=== PATIENT | male | born 1950 | race Caucasian/White ===

== ENCOUNTER 2020-05-29 22:12 | Inpatient (IN) | payer MEDICARE, OTHER ==
[~2020-05-29] VITALS: Ht 185.4 cm; Wt 111.4 kg
--- NOTE | 2020-05-29 22:41 | NUR ---
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
[2020-05-29] MEDS ORDERED: SODIUM CHLORIDE FLUSH 10ML SYR IVF ONE (23:00)
[2020-05-29 23:42] LABS: MEAN CORPUSCULAR HEMOGLOBIN 30.8 pg (27.5-34.5); MEAN CORPUSCULAR HGB CONC 33.4 g/dL (33.2-36.2); MEAN PLATELET VOLUME 7.5 fL (7.4-10.4); PLATELET COUNT 453 x10^3/uL (130-400); RED BLOOD COUNT 1.54 x10^6/uL (4.38-5.82)
[2020-05-29 23:48] LABS: ALANINE AMINOTRANSFERASE 17 U/L (12-78); ALBUMIN 2.4 g/dL (3.4-5.0); ANION GAP 12 mmol/L (5-15); CALCIUM 9.4 mg/dL (8.5-10.1); CHLORIDE 100 mmol/L (98-107)
[2020-05-29] MEDS ORDERED: PANTOPRAZOLE 80 MG in SODIUM CHLORIDE 0.9% 100 ML IV SCH (23:49)
[2020-05-29 23:54] LABS: ALKALINE PHOSPHATASE 78 U/L (45-117); BILIRUBIN,TOTAL 0.2 mg/dL (0.2-1.0); CREATININE 2.96 mg/dL (0.7-1.3); TOTAL PROTEIN 6.2 g/dL (6.4-8.2); TROPONIN I < 0.015 ng/mL (0.000-0.045)
[2020-05-29] MEDS ORDERED: MORPHINE SULFATE 4 MG/ML, 1ML ONE (23:58)
[2020-05-29 23:59] LABS: T4 (THYROXINE) 6.6 mcg/dL (4.5-12.1)
[2020-05-30] VITALS (18 sets, daily range): BP systolic 93–121; BP diastolic 47–57
[2020-05-30] MEDS ORDERED: SODIUM CHLORIDE 0.9% 1,000ML IVBOLUS ONE
[2020-05-30] MEDS ORDERED: DEXTROSE 50%, 50ML SYRINGE IVPush ONE
[2020-05-30] MEDS ORDERED: SODIUM CHLORIDE FLUSH 10ML SYR IVF ONE ×2
[2020-05-30] MEDS ORDERED: PANTOPRAZOLE 40 MG IV IVPush ONE
[2020-05-30] MEDS ORDERED: CALCIUM CHLORIDE 10%, 10ML SYR IVPush ONE
[2020-05-30] MEDS ORDERED: MORPHINE SULFATE 4 MG/ML, 1ML IVPush ONE
[2020-05-30] MEDS ORDERED: SODIUM BICARB 8.4%, 50ML SYRINGE IVPush ONE
[2020-05-30] MEDS ORDERED: INSULIN REGULAR 100 UNITS/ML, 3ML VIAL IVPush ONE
--- NOTE | 2020-05-30 00:02 | NUR ---
LATE ENTRY SUMMARY NOTE DUE TO PT CARE: THIS PT LIVES AT HOME WITH HIS WHERE HE NORMALLY AMBULATES WITHOUT ASSISTIVE DEVICES. PT WAS DIAGNOSED WITH CELLULITUS ON HIS RIGHT CALF, AND WAS GIVEN ABX BY HIS PCP. HE'D BEEN COMPLAINING OF GI SYMPOTOMS ASSOCIATED WITH HIS ABX INCLUDING N/V, LOOSE STOOLS AND ABD PAIN SO HIS PCP TOLD HIM HE COULD STOP AND HE STATES HIS GI SYMPTOMS RESOLVED. PT STATES HE ALSO NOTED DARK TARRY STOOLS FOR 3 WEEKS AND INCREASED WEAKNESS FOR THE PAST 3-5 DAYS. PT HAS FALLEN TWICE, MOST RECENTLY PRIOR TO ARRIVAL IN THE ER. BOTH TIMES PT DENIED FEELING DIZZY PRIOR. HIS FIRST FALL WAS APPROX 2 WEEKS AGO DURING WHICH HE HURT HIS LEFT ANKLE AND RIGHT 3RD TOE. HE DENIES HITTING HIS HEAD EITHER TIME. PT'S LABS REVEALED ACUTE KIDNEY FAILURE, NO HX OF KIDNEY PROBLEMS, SO URITHRAL CATHETER INSTERTED FOR STRICT I&OS. 300MLS OF URINE UPON INSERTION; INSERTED PER POLICY. PT WAS PLACED ON CARDIAC, BP AND O2 MONITORS IMMEDIATELY, CALL LIGHT IN REACH AND VISITOR AT BEDSIDE FOR THE DURATION OF TIME IN ROOM.
[2020-05-30] MEDS ORDERED: CALCIUM CHLORIDE 10%, 10ML SYR ONE (00:08)
[2020-05-30] MEDS ORDERED: PANTOPRAZOLE 40 MG IV ONE (00:08)
[2020-05-30] MEDS ORDERED: SODIUM BICARB 8.4%, 50ML SYRINGE ONE (00:08)
[2020-05-30] MEDS ORDERED: INSULIN SINGLE DOSE, ER ONE (00:09)
[2020-05-30] MEDS ORDERED: DEXTROSE 50%, 50ML SYRINGE ONE (00:09)
[2020-05-30 00:13] LABS: MD YES
[2020-05-30 00:15] LABS: ANISOCYTOSIS 1+; BAND#(MANUAL) 0.38 x10^3/uL; BANDS%(MANUAL) 2 % (0-7); HYPOCHROMIA 1+; LYMPH#(MANUAL) 1.14 x10^3/uL (1-3.4); LYMPHS% (MANUAL) 6 % (22-44); MONOS#(MANUAL) 0.19 x10^3/uL (0.3-2.7); MONOS% (MANUAL) 1 % (2-9); SEG#(MANUAL) 17.29 x10^3/uL (1.8-6.8); SEGS% (MANUAL) 91 % (42-75)
[2020-05-30 00:16] LABS: <PLATELET ESTIMATE> INCREASED; <PLT MORPHOLOGY> NORMAL PLT MORPH; POLYCHROMASIA 2+
[2020-05-30] MEDS ORDERED: PLEASE ENTER ALLERGIES MC SCH (00:30)
[2020-05-30] MEDS ORDERED: SODIUM CHLORIDE 0.9% 1,000 ML IV ONE (00:36)
[2020-05-30 00:42] LABS: INTERNATIONAL NORMALIZED RATIO 1.01 (0.93-1.1); PROTHROMBIN TIME 10.4 Seconds (9.6-11.5)
[2020-05-30] MEDS ORDERED: LIDOCAINE-MPF 1%, 5ML ONE (00:59)
[2020-05-30] MEDS ORDERED: LIDOCAINE-MPF 1%, 5ML INFIL ONE (01:00)
[2020-05-30] MEDS ORDERED: SIMV20TA19 PO (01:12)
[2020-05-30] MEDS ORDERED: DOCUSATE 100 MG CAPSULE PO PRN (01:30)
[2020-05-30] MEDS ORDERED: ONDANSETRON 2MG/ML, 2ML IVPush PRN (01:30)
[2020-05-30] MEDS ORDERED: BISACODYL 10 MG SUPP PR PRN (01:30)
[2020-05-30] MEDS ORDERED: morphine SULFATE 10 MG/ML, 1ML IVPush PRN (01:30)
[2020-05-30] MEDS ORDERED: ONDANSETRON ODT 4 MG PO PRN (01:30)
[2020-05-30] MEDS ORDERED: POLYETHYLENE GLYCOL 17 GM PACKET PO PRN (01:30)
[2020-05-30] MEDS ORDERED: hydrALAzine 20 MG/ML, 1ML IVPush PRN (01:30)
[2020-05-30] MEDS ORDERED: PROMETHAZINE 25 MG/ML, 1ML IM PRN (01:30)
[2020-05-30] MEDS ORDERED: LISI-170 PO (01:47)
[2020-05-30] MEDS ORDERED: SITA1TAB5 PO (01:47)
--- NOTE | 2020-05-30 01:49 | NUR ---
LATE ENTRY TO CORRECT CHARTING ON WRONG PT: ATTEMPTED TO CALL REPORT AT THIS TIME.
[2020-05-30 01:52] LABS: MICROSCOPIC AUTO
--- NOTE | 2020-05-30 02:15 | NUR ---
REPORT GIVEN TO WILI HARRISU CORA.
[2020-05-30] MEDS: SODIUM CHLORIDE 0.9% 1,000 ML IV SCH ×2 (02:56→14:56)
[2020-05-30] MEDS: OXYcodone IR 5MG TABLET PO PRN ×4 (04:06→20:36)
[2020-05-30 07:07] LABS: ALANINE AMINOTRANSFERASE 15 U/L (12-78); ANION GAP 5 mmol/L (5-15); CALCIUM 8.4 mg/dL (8.5-10.1); CHLORIDE 108 mmol/L (98-107); CREATININE 2.37 mg/dL (0.7-1.3)
[2020-05-30 07:11] LABS: ALKALINE PHOSPHATASE 66 U/L (45-117); BILIRUBIN,TOTAL 0.8 mg/dL (0.2-1.0); CHOL/HDL RATIO 2.7; CHOLESTEROL, TOTAL 78 mg/dL (140-239); HDL CHOL % 37 % (26-37); HDL CHOLESTEROL (DIRECT) 29 mg/dL (40-60); LDL CHOLESTEROL,CALCULATED 10 mg/dL (54-169); LDL/HDL RATIO 0.3 (0.5-3.0); TOTAL PROTEIN 5.1 g/dL (6.4-8.2); TRIGLYCERIDES 197 mg/dL (50-200); VLDL CHOLESTEROL 39 mg/dL (0-25)
[2020-05-30] MEDS: INSULIN LISPRO 100 UNITS/ML, PEN SQ-INSULIN SCH ×4 (08:11→21:00)
[2020-05-30] MEDS: PANTOPRAZOLE 80 MG in SODIUM CHLORIDE 0.9% 100 ML IV SCH (13:18)
[2020-05-30] MEDS: CEFAZOLIN PMX 1GM/50ML 50 ML IV SCH ×2 (13:18→20:35)
[2020-05-31] MEDS: OXYcodone IR 5MG TABLET PO PRN ×3 (00:36→20:52)
[2020-05-31 04:00] VITALS: BP 114/60
[2020-05-31 04:33] LABS: MEAN CORPUSCULAR HEMOGLOBIN 30.8 pg (27.5-34.5); MEAN CORPUSCULAR HGB CONC 32.7 g/dL (33.2-36.2); MEAN PLATELET VOLUME 6.4 fL (7.4-10.4); PLATELET COUNT 335 x10^3/uL (130-400); RED BLOOD COUNT 2.42 x10^6/uL (4.38-5.82); RED CELL DISTRIBUTION WIDTH 16.8 % (9.4-14.8)
[2020-05-31 04:42] LABS: ANION GAP 4 mmol/L (5-15); CALCIUM 7.9 mg/dL (8.5-10.1); CHLORIDE 112 mmol/L (98-107); CREATININE 1.58 mg/dL (0.7-1.3)
[2020-05-31 04:49] LABS: MD YES
[2020-05-31 04:51] LABS: ANISOCYTOSIS 1+; BAND#(MANUAL) 0.12 x10^3/uL; BANDS%(MANUAL) 1 % (0-7); EOS#(MANUAL) 0.23 x10^3/uL (0.0-0.4); EOS% (MANUAL) 2 % (1-7); HYPOCHROMIA 1+; LYMPH#(MANUAL) 0.81 x10^3/uL (1-3.4); LYMPHS% (MANUAL) 7 % (22-44); METAMYELOCYTES# (MANUAL) 0.23 x10^3/uL (0-0); METAMYELOCYTES% (MANUAL) 2 % (0-1); MONOS#(MANUAL) 0.69 x10^3/uL (0.3-2.7); MONOS% (MANUAL) 6 % (2-9); MYELOCYTES# (MANUAL) 0.23 x10^3/uL (0-0); MYELOCYTES% (MANUAL) 2 % (0-0); POLYCHROMASIA 1+; SEGS% (MANUAL) 80 % (42-75)
[2020-05-31 04:52] LABS: <PLATELET ESTIMATE> ADEQUATE; <PLT MORPHOLOGY> NORMAL PLT MORPH
[2020-05-31] MEDS: CEFAZOLIN PMX 1GM/50ML 50 ML IV SCH ×3 (07:42→23:32)
[2020-05-31 08:00] VITALS: BP 124/70
[2020-05-31] MEDS: INSULIN LISPRO 100 UNITS/ML, PEN SQ-INSULIN SCH ×4 (08:14→20:52)
[2020-05-31] MEDS: PANTOPRAZOLE 80 MG in SODIUM CHLORIDE 0.9% 100 ML IV SCH ×2 (10:37→20:51)
[2020-05-31 12:00] VITALS: BP 122/68
[2020-05-31 20:56] VITALS: BP 117/57
[2020-06-01] MEDS: OXYcodone IR 5MG TABLET PO PRN ×5 (01:05→22:44)
[2020-06-01 01:23] VITALS: BP 147/73
[2020-06-01 04:56] LABS: BASOPHILS # (AUTO) 0.01 x10^3/uL (0-0.1); BASOPHILS % (AUTO) 0 % (0-1); EOSINOPHILS # (AUTO) 0.23 x10^3/uL (0-0.4); EOSINOPHILS % (AUTO) 3 % (1-7); LYMPHOCYTES # (AUTO) 0.98 x10^3/uL (1-3.4); LYMPHOCYTES % (AUTO) 12 % (22-44); MD NO; MEAN CORPUSCULAR HEMOGLOBIN 31.2 pg (27.5-34.5); MEAN CORPUSCULAR HGB CONC 32.9 g/dL (33.2-36.2); MONOCYTES # (AUTO) 0.73 x10^3/uL (0.2-0.8); MONOCYTES % (AUTO) 9 % (2-9); NEUTROPHILS # (AUTO) 6.24 x10^3/uL (1.8-6.8); NEUTROPHILS % (AUTO) 76 % (42-75); PLATELET COUNT 327 x10^3/uL (130-400); RED BLOOD COUNT 2.42 x10^6/uL (4.38-5.82); RED CELL DISTRIBUTION WIDTH 16.9 % (9.4-14.8)
[2020-06-01 05:03] LABS: CHLORIDE 109 mmol/L (98-107)
[2020-06-01 05:08] LABS: ANION GAP 5 mmol/L (5-15); CREATININE 1.26 mg/dL (0.7-1.3)
[2020-06-01] MEDS: PANTOPRAZOLE 80 MG in SODIUM CHLORIDE 0.9% 100 ML IV SCH (06:05)
[2020-06-01] MEDS: CEFAZOLIN PMX 1GM/50ML 50 ML IV SCH ×3 (06:38→22:44)
[2020-06-01 09:00] VITALS: BP 132/64
[2020-06-01] MEDS: PANTOPRAZOLE 40MG TABLET PO SCH ×2 (09:45→21:33)
[2020-06-01] MEDS: INSULIN LISPRO 100 UNITS/ML, PEN SQ-INSULIN SCH ×4 (10:09→21:33)
[2020-06-01 14:00] VITALS: BP 110/55
[2020-06-01] MEDS: metFORMIN 500 MG TABLET PO SCH (18:13)
[2020-06-01 19:38] VITALS: BP 119/70
[2020-06-02] MEDS: OXYcodone IR 5MG TABLET PO PRN ×2 (03:56→08:35)
[2020-06-02 03:58] VITALS: BP 111/76
[2020-06-02 04:43] LABS: BASOPHILS # (AUTO) 0.01 x10^3/uL (0-0.1); BASOPHILS % (AUTO) 0 % (0-1); EOSINOPHILS # (AUTO) 0.26 x10^3/uL (0-0.4); EOSINOPHILS % (AUTO) 3 % (1-7); LYMPHOCYTES # (AUTO) 1.01 x10^3/uL (1-3.4); LYMPHOCYTES % (AUTO) 12 % (22-44); MD NO; MEAN CORPUSCULAR HEMOGLOBIN 30.9 pg (27.5-34.5); MEAN CORPUSCULAR HGB CONC 32.3 g/dL (33.2-36.2); MEAN PLATELET VOLUME 6.7 fL (7.4-10.4); MONOCYTES # (AUTO) 0.71 x10^3/uL (0.2-0.8); MONOCYTES % (AUTO) 9 % (2-9); NEUTROPHILS # (AUTO) 6.29 x10^3/uL (1.8-6.8); NEUTROPHILS % (AUTO) 76 % (42-75); PLATELET COUNT 334 x10^3/uL (130-400); RED BLOOD COUNT 2.64 x10^6/uL (4.38-5.82); RED CELL DISTRIBUTION WIDTH 17.3 % (9.4-14.8)
[2020-06-02] MEDS: CEFAZOLIN PMX 1GM/50ML 50 ML IV SCH (06:03)
[2020-06-02] MEDS: INSULIN LISPRO 100 UNITS/ML, PEN SQ-INSULIN SCH ×2 (07:52→11:35)
[2020-06-02] MEDS: metFORMIN 500 MG TABLET PO SCH (07:53)
[2020-06-02] MEDS: PANTOPRAZOLE 40MG TABLET PO SCH (07:53)
[2020-06-02 08:20] VITALS: BP 111/76
[2020-06-02] MEDS ORDERED: CEPH-368 PO (09:17)
[2020-06-02] MEDS ORDERED: PANT40TA6 PO (09:17)
[2020-06-02 11:42] VITALS: BP 120/86
[2020-06-02] MEDS ORDERED: OXYC5TAB3 PO (12:31)
== END 2020-06-02 13:20 | disposition home health service (06) | DRG 377 ==
LOC: ED 05-30 02:15 → EDIP 05-30 02:45 → CCU 05-30 02:49 → ICU 05-30 12:31
PROVIDERS: ADMIT Internal Medicine; ATTEND Hospitalist
PROC: 30233N1 Transfusion of Nonautologous Red Blood Cells into Peripheral Vein, Percutaneous Approach (ICD-10-PCS; principal; 2020-05-30)
DX: K27.4 Chronic or unspecified peptic ulcer, site unspecified, with hemorrhage (principal); U07.1 COVID-19; D62 Acute posthemorrhagic anemia; L03.115 Cellulitis of right lower limb; N17.9 Acute kidney failure, unspecified; S82.892A Other fracture of left lower leg, initial encounter for closed fracture; E11.22 Type 2 diabetes mellitus with diabetic chronic kidney disease; E87.5 Hyperkalemia; I12.9 Hypertensive chronic kidney disease with stage 1 through stage 4 chronic kidney disease, or unspecified chronic kidney disease; N18.9 Chronic kidney disease, unspecified; S82.842A Displaced bimalleolar fracture of left lower leg, initial encounter for closed fracture; T39.395A Adverse effect of other nonsteroidal anti-inflammatory drugs [NSAID], initial encounter; S82.891A Other fracture of right lower leg, initial encounter for closed fracture; W18.39XA Other fall on same level, initial encounter; I95.9 Hypotension, unspecified; Z79.4 Long term (current) use of insulin; Z83.3 Family history of diabetes mellitus; Z85.048 Personal history of other malignant neoplasm of rectum, rectosigmoid junction, and anus; Z86.19 Personal history of other infectious and parasitic diseases; Z90.49 Acquired absence of other specified parts of digestive tract; Y93.89 Activity, other specified; Y92.89 Other specified places as the place of occurrence of the external cause; Y99.8 Other external cause status
CPT/HCPCS: 28630; 36415; 36430; 71045; 80048; 80053; 80061; 81001; 82962; 83036; 83735; 83880; 84436; 84443; 84484; 85014; 85018; 85025; 85610; 85730; 86850; 86900; 86923; 87081; 87635; 93005; 96374; 96375; G0378; J0690; J1815; J2405; C9113; J2270; J7030; P9016

== ENCOUNTER 2020-06-07 08:14 | Day surgery (SDC) | payer MEDICARE ==
[~2020-06-07] VITALS: Ht 185.4 cm; Wt 120.4 kg
[~2020-06-07 08:14] MED LIST: CEPH-368 PO; LISI-170 PO; OXYC5TAB3 PO; PANT40TA6 PO; SIMV20TA19 PO; SITA1TAB5 PO
[2020-06-07] MEDS ORDERED: LACTATED RINGERS 1,000 ML IV SCH ×2 (09:02→09:32)
[2020-06-07 09:23] VITALS: BP 95/67
[2020-06-07] MEDS ORDERED: LIDOCAINE-MPF 1%, 2ML INFIL ONE (09:30)
[2020-06-07] MEDS ORDERED: CHLORHEXIDINE 15 ML UDC MM ONE ×2 (09:30→10:00)
[2020-06-07] MEDS ORDERED: CEPH-368 PO (09:40)
[2020-06-07] MEDS ORDERED: PANT40TA6 PO (09:40)
[2020-06-07 09:48] LABS: MEAN CORPUSCULAR HGB CONC 31.9 g/dL (33.2-36.2); MEAN PLATELET VOLUME 7.2 fL (7.4-10.4); PLATELET COUNT 455 x10^3/uL (130-400); RED BLOOD COUNT 3.48 x10^6/uL (4.38-5.82); RED CELL DISTRIBUTION WIDTH 17.8 % (9.4-14.8)
[2020-06-07] MEDS ORDERED: MIDAZOLAM 1 MG/ML, 2ML ONE (09:54)
[2020-06-07] MEDS ORDERED: FENTANYL PF 250 MCG/5ML ONE (09:55)
[2020-06-07 09:56] LABS: ALANINE AMINOTRANSFERASE 23 U/L (12-78); ALBUMIN 2.8 g/dL (3.4-5.0); ANION GAP 11 mmol/L (5-15); CALCIUM 8.5 mg/dL (8.5-10.1); CHLORIDE 107 mmol/L (98-107); CREATININE 1.42 mg/dL (0.7-1.3)
[2020-06-07 09:59] LABS: ALKALINE PHOSPHATASE 137 U/L (45-117); BILIRUBIN,TOTAL 0.6 mg/dL (0.2-1.0); TOTAL PROTEIN 7.2 g/dL (6.4-8.2)
[2020-06-07 10:00] LABS: MD YES
[2020-06-07 10:01] LABS: BAND#(MANUAL) 0.13 x10^3/uL; BANDS%(MANUAL) 1 % (0-7); EOS#(MANUAL) 0.13 x10^3/uL (0.0-0.4); EOS% (MANUAL) 1 % (1-7); LYMPH#(MANUAL) 0.51 x10^3/uL (1-3.4); LYMPHS% (MANUAL) 4 % (22-44); METAMYELOCYTES# (MANUAL) 0.13 x10^3/uL (0-0); METAMYELOCYTES% (MANUAL) 1 % (0-1); MONOS#(MANUAL) 1.14 x10^3/uL (0.3-2.7); MONOS% (MANUAL) 9 % (2-9); SEG#(MANUAL) 10.67 x10^3/uL (1.8-6.8); SEGS% (MANUAL) 84 % (42-75)
[2020-06-07 10:02] LABS: ANISOCYTOSIS 1+; HYPOCHROMIA 1+; POLYCHROMASIA 1+
[2020-06-07 10:03] LABS: <PLATELET ESTIMATE> INCREASED; <PLT MORPHOLOGY> NORMAL PLT MORPH
[2020-06-07] MEDS ORDERED: EPINEPHRINE 1 MG/ML, 1ML ONE (10:18)
[2020-06-07] MEDS ORDERED: BUPIVACAINE/PF 0.5% ONE (10:18)
[2020-06-07] MEDS ORDERED: HYDROmorphone 1 MG/ML, 1ML INJ IVPush PRN (11:00)
[2020-06-07] MEDS ORDERED: MEPERIDINE/PF 25MG/0.5ML IVPush PRN (11:00)
[2020-06-07] MEDS ORDERED: ACETAMINOPHEN 325 MG TABLET PO PRN ×2 (11:00→13:00)
[2020-06-07] MEDS ORDERED: OXYcodone 5 MG/5 ML ORAL.SOL UDC PO PRN ×2 (11:00→13:00)
[2020-06-07] MEDS ORDERED: BUPIVACAINE/PF-EPI 0.5% 1:200K INFIL ONE (11:49)
[2020-06-07] MEDS ORDERED: OXYcodone 5 MG/5 ML ORAL.SOL UDC ONE (12:27)
[2020-06-07] MEDS ORDERED: HYDROmorphone 1 MG/ML, 1ML INJ ONE (12:27)
[2020-06-07] MEDS ORDERED: FENTANYL PF 100 MCG/2ML ONE (12:55)
[2020-06-07] MEDS: FENTANYL PF 100 MCG/2ML IV PRN ×2 (12:57→13:04)
[2020-06-07] MEDS ORDERED: PROMETHAZINE 25 MG/ML, 1ML IM PRN (13:00)
[2020-06-07] MEDS ORDERED: ONDANSETRON 2MG/ML, 2ML IVPush PRN (13:00)
[2020-06-07] MEDS ORDERED: morphine SULFATE 10 MG/ML, 1ML IVPush PRN (13:00)
[2020-06-07] MEDS ORDERED: MORPHINE SULFATE 4 MG/ML, 1ML ONE (13:44)
[2020-06-07] MEDS ORDERED: ACETAMINOPHEN 325 MG TABLET ONE (13:44)
== END 2020-06-07 14:55 | disposition home or self-care (01) ==
LOC: OUT 08:14
PROVIDERS: ATTEND Orthopaedic Surgery
DX: S82.62XA Displaced fracture of lateral malleolus of left fibula, initial encounter for closed fracture (principal); S93.124A Dislocation of metatarsophalangeal joint of right lesser toe(s), initial encounter; E11.9 Type 2 diabetes mellitus without complications; I10 Essential (primary) hypertension; E78.5 Hyperlipidemia, unspecified; X58.XXXA Exposure to other specified factors, initial encounter; Y93.89 Activity, other specified; Y92.89 Other specified places as the place of occurrence of the external cause; Y99.8 Other external cause status; S93.432A Sprain of tibiofibular ligament of left ankle, initial encounter; Z79.899 Other long term (current) drug therapy; Z98.890 Other specified postprocedural states; Z79.84 Long term (current) use of oral hypoglycemic drugs; Z79.2 Long term (current) use of antibiotics
CPT/HCPCS: 27814; 28645; 73600; 73620; 80053; 82962; 85025; 93005; C1713; J0171; J2250; J3010; J7120; 76000